=== PATIENT | female | born 1960 | race Caucasian/White ===

== ENCOUNTER → 2019-11-10 | Outpatient (CLI) | payer BC, OTHER ==
--- NOTE | 2019-11-10 12:43 | REP ---
MRI lumbar spine: 11/10/2019. Indication: Lumbar radiculopathy. Comparison: None. Technique: Multiplanar short and long TR sequences of the lumbar spine were performed without IV Gadolinium. Findings: There is a grade 1 anterolisthesis of L4-L5. Disc dessication is present throughout most pronounced at L4/L5. There is disc space narrowing at L4/L5 as well. No worrisome marrow or cord signal abnormalities are present. 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 No significant paraspinal soft tissue abnormalities are detected. L1/L2, L2/L3 and L3/L4: No focal disc herniations or areas of significant spinal canal / neural foraminal narrowing are present. L4/L5: Diffuse disc uncovering/bulge and bilateral facet arthropathy are present with severe left greater than right recess narrowing. Moderate bilateral neural foraminal narrowing is present. L5/S1: There is no focal disc herniation or significant spinal canal / neural foraminal narrowing. Impression: Degenerative sequelae most pronounced at L4/L5 on the left as described. Electronically Signed by Brad Haywood DO 11/10/2019 12:34 P
== END ==
LOC: M RAD 09:38
PROVIDERS: ATTEND Physical Medicine & Rehabilitation
DX: M47.27 Other spondylosis with radiculopathy, lumbosacral region (principal)

== ENCOUNTER → 2023-10-20 | Outpatient (CLI) | payer OTHER ==
[2023-10-20 17:35] LABS: RHEUMATOID FACTOR QUANT < 3.5 IU/ML (<14)
[2023-10-20 17:36] LABS: FOLATE > 24.0 NG/ML (>5.4); THYROXINE (T4) 8.3 UG/DL (4.5-10.9)
[2023-10-20 17:37] LABS: FREE T4 0.95 NG/DL (0.89-1.76); FREE THYROXINE INDEX 2.5 % (1.3-4.8); T UPTAKE 30.6 % (22.5-37.0); VITAMIN B12 LEVEL 430 PG/ML (211-911)
[2023-10-20 17:38] LABS: THYROID STIMULATING HORMONE 2.226 uIU/ML (0.55-4.78)
== END ==
LOC: M PLALAB 15:30
PROVIDERS: ATTEND Psychiatry & Neurology Neurology
DX: D51.9 Vitamin B12 deficiency anemia, unspecified (principal); E07.9 Disorder of thyroid, unspecified; R41.3 Other amnesia